=== PATIENT | female | born 2000 | race African-American/Black ===

== ENCOUNTER 2023-09-09 15:10 | Emergency (ER) | payer OTHER ==
[2023-09-09 15:17] VITALS: PULSE 89; RESP 20; TEMP 98.5; BMI 28.8
[2023-09-09] MEDS ORDERED: ACETAMINOPHEN INJECTION 100 ML IVPB ONE (16:01)
[2023-09-09] MEDS ORDERED: KETOROLAC TROMETHAMINE 15 MG/ML VIAL ONE ×2 (16:02→18:57)
[2023-09-09] MEDS: SODIUM CHLORIDE 1,000 ML IV STA (16:20)
[2023-09-09] MEDS: ACETAMINOPHEN 1000 MG/100 ML BAG IVPB ONE (16:20)
[2023-09-09 16:28] LABS: BASO % 0.5 % (0-2.0); EOS % 0.5 % (0-4.5); HEMATOCRIT 31.4 % (32.4-45.2); LYMPH % 15.7 % (8-40); MCH 30.4 pg (25.7-33.7); MCHC 34.9 g/dl (32.0-36.0); MEAN PLT VOLUME 8.7 fl (7.5-11.1); MONO % 7.7 % (3.8-10.2); NEUT % 75.6 % (42.8-82.8); PLATELET COUNT 183 10^3/uL (134-434); RBC 3.61 M/mm3 (3.60-5.2); RDW 13.7 % (11.6-15.6); WHITE BLOOD COUNT 9.3 K/mm3 (4.0-10.0)
[2023-09-09 16:33] LABS: INR 1.12 (0.83-1.09); PROTHROMBIN TIME (PATIENT) 12.6 SEC (9.7-13.0)
[2023-09-09 16:36] LABS: ACTIVATED PTT 26.9 SECONDS (25.2-36.5)
[2023-09-09] MEDS: KETOROLAC TROMETHAMINE 15 MG/ML VIAL IVPUSH ONE ×2 (16:48→19:00)
[2023-09-09] MEDS ORDERED: morphine SULFATE 4 MG/ML VIAL ONE (16:56)
[2023-09-09] MEDS: ONDANSETRON 4 MG/2 ML VIAL IVPUSH ONE (17:00)
[2023-09-09] MEDS: morphine CARPU-JECT 4 MG/1 ML DISP.SYRIN IVPUSH ONE (17:01)
[2023-09-09 17:04] LABS: POTASSIUM 3.4 mmol/L (3.5-5.1)
[2023-09-09 17:06] LABS: BLOOD UREA NITROGEN 7.9 mg/dL (7-18); CALCIUM 8.8 mg/dL (8.5-10.1)
[2023-09-09 17:07] LABS: ALBUMIN 3.3 g/dl (3.4-5.0)
[2023-09-09 17:10] LABS: CREATININE 0.7 mg/dL (0.55-1.3)
[2023-09-09 17:11] LABS: BILIRUBIN,TOTAL 0.3 mg/dL (0.2-1); TOT PROT 6.2 g/dl (6.4-8.2)
[2023-09-09] MEDS ORDERED: ONDANSETRON 4 MG/2 ML VIAL ONE (17:20)
[2023-09-09] MEDS ORDERED: oxyCODONE HCL 5 MG TABLET ONE (19:17)
[2023-09-09] MEDS: oxyCODONE HCL 5 MG TABLET PO ONE (19:23)
[2023-09-09 19:32] VITALS: BP 112/64
[2023-09-09] MEDS: MISOPROSTOL 200 MCG TABLET NR ONE (20:34)
== END 2023-09-09 21:22 | disposition home or self-care (01) ==
LOC: JER 15:10
PROC: 3E033NZ Introduction of Analgesics, Hypnotics, Sedatives into Peripheral Vein, Percutaneous Approach (ICD-10-PCS; principal; 2023-09-09)
PROC: 3E0333Z Introduction of Anti-inflammatory into Peripheral Vein, Percutaneous Approach (ICD-10-PCS; 2023-09-09)
PROC: 3E033NZ Introduction of Analgesics, Hypnotics, Sedatives into Peripheral Vein, Percutaneous Approach (ICD-10-PCS; 2023-09-09)
PROC: 3E033GC Introduction of Other Therapeutic Substance into Peripheral Vein, Percutaneous Approach (ICD-10-PCS; 2023-09-09)
PROC: 3E0337Z Introduction of Electrolytic and Water Balance Substance into Peripheral Vein, Percutaneous Approach (ICD-10-PCS; 2023-09-09)
DX: O03.4 Incomplete spontaneous abortion without complication (principal)
CPT/HCPCS: 36415; 76817-TC; 80053; 84702; 85025; 85610; 85730; 86850; 86900; 86901; 93005; 93010; 99285-25; J0131

== ENCOUNTER 2023-09-10 13:34 | Emergency (ER) | payer OTHER ==
[2023-09-10 13:41] VITALS: BP 99/66; PULSE 75; RESP 18; TEMP 98.4; BMI 28.8
[2023-09-10] MEDS ORDERED: ACETAMINOPHEN INJECTION 100 ML IVPB ONE (14:05)
[2023-09-10] MEDS: ACETAMINOPHEN 1000 MG/100 ML BAG IVPB ONE (14:24)
[2023-09-10] MEDS: LACTATED RINGERS SOLUTION 1000 ML INFUS.BAG IV ONE (14:24)
[2023-09-10 14:28] LABS: BASO % 0.6 % (0-2.0); EOS % 2.1 % (0-4.5); HEMATOCRIT 29.7 % (32.4-45.2); HEMOGLOBIN 10.4 GM/dL (10.7-15.3); LYMPH % 24.7 % (8-40); MCH 30.7 pg (25.7-33.7); MCHC 34.9 g/dl (32.0-36.0); MEAN CELL VOLUME 87.8 fl (80-96); MEAN PLT VOLUME 8.8 fl (7.5-11.1); MONO % 6.4 % (3.8-10.2); NEUT % 66.2 % (42.8-82.8); PLATELET COUNT 186 10^3/uL (134-434); RBC 3.39 M/mm3 (3.60-5.2); RDW 13.9 % (11.6-15.6); WHITE BLOOD COUNT 8.1 K/mm3 (4.0-10.0)
[2023-09-10 14:37] LABS: INR 1.11 (0.83-1.09); PROTHROMBIN TIME (PATIENT) 12.5 SEC (9.7-13.0)
[2023-09-10 14:39] LABS: ACTIVATED PTT 23.5 SECONDS (25.2-36.5)
[2023-09-10 14:48] LABS: POTASSIUM 3.7 mmol/L (3.5-5.1)
[2023-09-10 14:51] LABS: ALBUMIN 3.2 g/dl (3.4-5.0); CALCIUM 9.1 mg/dL (8.5-10.1)
[2023-09-10 14:52] LABS: BLOOD UREA NITROGEN 5.5 mg/dL (7-18)
[2023-09-10 14:54] LABS: CREATININE 0.7 mg/dL (0.55-1.3)
[2023-09-10 14:56] LABS: BILIRUBIN,TOTAL 0.4 mg/dL (0.2-1); TOT PROT 6.1 g/dl (6.4-8.2)
== END 2023-09-10 16:57 | disposition home or self-care (01) ==
LOC: JER 13:34
PROC: 3E033NZ Introduction of Analgesics, Hypnotics, Sedatives into Peripheral Vein, Percutaneous Approach (ICD-10-PCS; principal; 2023-09-10)
DX: O03.9 Complete or unspecified spontaneous abortion without complication (principal)
CPT/HCPCS: 36415; 76817-TC; 80053; 85025; 85610; 85730; 86850; 86900; 86901; 99284-25; J0131